=== PATIENT | female | born 2000 | race Caucasian/White ===

== ENCOUNTER 2019-04-11 21:09 | Emergency (ER) | payer OTHER, SELFPAY ==
[2019-04-11 21:14] VITALS: BP 139/86; PULSE 116; RESP 20; TEMP 37; O2SAT 98
[2019-04-11 22:03] LABS: Bilirubin Negative (Negative); Blood Negative (Negative); Clarity Clear (Clear); Glucose Negative (Negative); Ketones Trace mg/dL (Negative); Leukocyte Esterase Trace (Negative); Nitrite Negative (Negative); Specific Gravity >= 1.030 (1.005-1.025); Urobilinogen 0.2 EU/dL (Up TO 0.2); pH 5.5 (5-8)
[2019-04-11 22:10] LABS: Bacteria Many HPF (Negative); C & S Indicated? Yes; Casts Negative LPF (Negative); Crystals Negative HPF (Negative); Epithelial Cells Few HPF (Negative); Mucus Trace (Negative); RBC 0-2 (0-2)
--- NOTE | 2019-04-11 22:57 | W.ED.GENAD ---
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 Avoid alcohol for the next week. Repeat medication in 1 week from today if needed for any persistent symptoms. Rest activities as tolerated. Always use protection when having intercourse. Urine culture is pending, gonorrhea chlamydia testing are pending. Follow-up with [employer]AL[employer] REPRESENTATIVE doctor for persistence of symptoms or reevaluation if desired. Return if needed for any worsening or concerns Referrals: [facility] [Provider Group] Medical Decision Making 18-year-old recently sexually active patient with a new partner complaining of vaginal pruritus as well as irritation. On pelvic exam patient has notable white thick vaginal discharge consistent with yeast, external erythema consistent with vulvovaginal candidiasis. Patient's cervix is closed, no cervical motion tenderness noted. Vaginal pathology reveals candidiasis without trichomonas or indication of bacterial vaginosis. Gonorrhea chlamydia testing pending. Patient has mild leukocyte esterase noted on urinalysis however I think this is likely contamination. Culture is pending. Discussed with patient topical treatments versus oral, patient preference is oral treatment at this time. Single dose provided at this time with a perception for home if needed for return of symptoms. Patient was provided [facility] for follow-up and encouraged her to follow-up for consideration of control. Discussed use of protection. Patient has otherwise no symptoms of systemic illness and a very benign abdominal exam today. The patient was stable and requested discharge. Prior to discharge, my usual and customary return precautions were reviewed with the patient - this included follow-up instructions and reasons to return to the Emergency Department if conditions worsens, does not improve as expected, or other new concerns arise. HPI General Date/Time Provider Initiated Documentation: 04/11/19 21:11. HPI Narrative: Is a anxious 18-year-old woman who presents to the emergency room for concern of vaginal itching and discharge. Patient reports she had intercourse 1 week ago with a new partner. Was using protection. Patient reports 4 to 5 days after intercourse she had onset of vaginal itching and irritation. Patient reports mild dysuria when urinating but no associated frequency or urgency. Denies vaginal bleeding. Patient denies significant concern of however is not taking control. Patient reports minimal odor. Denies abdominal or back pain. No associated fever, chills, nausea or vomiting. Eating and drink without difficulty. No other concerns or complaints at this time. 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 BRITTANI: 3 Review of Systems All systems reviewed & are unremarkable except as noted in HPI and below Constitutional Constitutional: Denies chills, Denies fatigue, Denies fever(s), Denies headache(s) and Denies malaise ENT Ears, Nose, Mouth, and Throat: Denies headache(s) Gastrointestinal Gastrointestinal: Denies abdominal pain, Denies nausea and Denies vomiting Genitourinary Genitourinary: Denies urinary frequency, Reports dysuria, Denies urinary hesitancy, Denies urinary urgency, Reports vaginal discharge, Reports vaginal odor and Reports vaginal pruritus Neurologic Neurologic: Denies headache(s) Endocrine Endocrine: Denies fatigue [facility] Social History Smoking/Tobacco Use Status: Never Alcohol Intake: former Substance use type: does not use Do you feel safe at home: Yes Do you feel safe in your relationship?: Yes Exam Narrative Exam Narrative: CONST: Healthy appearing patient, in no acute distress. Well hydrated. Alert and alert. SKIN: Normal. Dry. No rashes. NEURO: Alert and awake. Speech clear. PSYCH: Normal affect. Cooperative. External Female Exam: erythema and external swelling Speculum Exam - Vagina: vaginal erythema and no lesions Speculum Exam - Cervix: normal appearance of the cervix, normal vervical discharge and nontender Bimanual Exam- Vagina & Uterus: No cervical tenderness, no cervical motion tenderness and uterus soft Bimanual Exam- Adnexa, other: normal adnexae Course Vital Signs Vital signs: Vital Signs Temperature 37.0 C 04/11/19 21:14 Pulse 116 H 04/11/19 21:14 Respiratory Rate 20 04/11/19 21:14 Blood Pressure 139/86 04/11/19 21:14 Pulse Oximetry 98 04/11/19 21:14 Temperature 37.0 C 04/11/19 21:14 Temperature Source Temporal Artery Scan 04/11/19 21:14 Pulse 116 H 04/11/19 21:14 Respiratory Rate 20 04/11/19 21:14 Respiratory Effort Non-Labored 04/11/19 21:16 Blood Pressure 139/86 04/11/19 21:14 Blood Pressure Position Sitting 04/11/19 21:14 Pulse Oximetry 98 04/11/19 21:14 Oxygen Delivery Method Room Air 04/11/19 21:14 Oxygen Flow Rate 0 04/11/19 21:14 Pain Level 8 04/11/19 21:14 Lab/Test Results Lab/Test Results: 04/11/19 21:58 Vaginal Vaginitis Screen - Final 04/11/19 21:25 Urine - Reflex from Ua Urine Culture - Pending Laboratory Tests Range/Units 04/11/19 21:25 Urine Color (Yellow) Yellow Urine Clarity (Clear) Clear Urine pH (5-8) 5.5 Ur Specific [place] (1.005-1.025) >= 1.030 H Urine Protein (Negative) mg/dL Negative Urine Ketones (Negative) mg/dL Trace H Urine Blood (Negative) Negative Urine Nitrite (Negative) Negative Urine Bilirubin (Negative) Negative Urine Urobilinogen (Up TO 0.2) EU/dL 0.2 Ur Leukocyte Esterase (Negative) Trace H Urine RBC (0-2) 0-2 Urine WBC (0-5) HPF 5-10 Ur Epithelial Cells (Negative) HPF Few Urine Crystals (Negative) HPF Negative Urine Bacteria (Negative) HPF Many Urine Casts (Negative) LPF Negative Urine Mucus (Negative) Trace Ur Culture Indicated? Yes Urine Glucose (Negative) mg/dL Negative POC- Test(urine) Negative
[2019-04-11] MEDS: Fluconazole 150 MG TAB (22:58)
[2019-04-20 09:10] LABS: Chlamydia amplified RNA Negative
[2019-04-20 09:11] LABS: N gonorrhoeae amplified RNA Negative
== END 2019-04-11 23:05 | disposition home or self-care (01) ==
PROVIDERS: Emergency Provider Physician Assistant
DX: B37.3 Candidiasis of vulva and vagina (principal)
CPT/HCPCS: 87491; 87591; 99283; 81003; 81015; 87086; 87480; 87510; 87660

== ENCOUNTER 2020-08-08 15:52 | Outpatient (REF) | payer BC, SELFPAY | END 2020-08-08 15:53 | disposition home or self-care (01) | LOC: LBN 15:52 | PROVIDERS: Visit Provider Physician Assistant | DX: R10.30 Lower abdominal pain, unspecified (principal); N89.8 Other specified noninflammatory disorders of vagina | CPT/HCPCS: 87480; 87510; 87660 ==